=== PATIENT | female | born 1955 | race Caucasian/White ===

== ENCOUNTER → 2017-01-17 | Outpatient (CLI) | payer BC ==
[~2017-01-17] MED LIST: LORTAB 5/500 501 TAB PO; NO HOME MEDICATIONS; ST. JOHN'S WOR300 MG PO; THERAPEUTIC VIT1 CAP PO
== END ==
LOC: MC.RAD 08:00
DX: Z12.31 Encounter for screening mammogram for malignant neoplasm of breast (principal)